=== PATIENT | male | born 1970 | race Caucasian/White ===

== ENCOUNTER 2018-08-17 12:20 | Emergency (ER) | payer BC ==
[2018-08-17] MEDS ORDERED: Adacel (T-DAP) 0.5 ML SYRINGE ONE (14:30)
--- NOTE | 2018-08-17 15:03 | RAD ---
RIGHT HAND THREE VIEWS: History: 48-year-old male with history of right hand injury with laceration. FINDINGS/IMPRESSION: No fracture, dislocation, or other significant osseous abnormality. No evidence for overt foreign bod y. Minimal degenerative and arthrosis changes of the trapezium first metacarpal joint. POS: [facility]
[2018-08-17] MEDS ORDERED: Lidocaine 1% 20 ML MDV ONE (15:09)
[2018-08-17] MEDS ORDERED: Bacitracin Zinc 1 Packet ONE (16:05)
== END 2018-08-17 16:12 | disposition home or self-care (01) ==
LOC: SCSER 12:20
DX: S61.411A Laceration without foreign body of right hand, initial encounter (principal); W20.8XXA Other cause of strike by thrown, projected or falling object, initial encounter
CPT/HCPCS: 12002; 90471; 90715; J2001